=== PATIENT | female | born 1955 | race Caucasian/White ===

== ENCOUNTER 2025-03-02 06:39 | Day surgery (SDC) | payer BC ==
[~2025-03-02] VITALS: Ht 162.6 cm; Wt 78.5 kg
[2025-03-02] MEDS ORDERED: LIDOCAINE 1%-EPI 1:100,000 20 ML VIAL ONE (07:07)
[2025-03-02] MEDS ORDERED: ANESTHESIA TRAY IN PYXIS 1 EA TRAY MC ONE (07:07)
[2025-03-02] MEDS ORDERED: ROCURONIUM BROMIDE 50 MG/5 ML ONE ×2 (08:20→09:47)
[2025-03-02] MEDS ORDERED: SUCCINYLCHOLINE CHLORIDE 20 MG/ML VIAL ONE (08:20)
[2025-03-02] MEDS ORDERED: FENTANYL PF 250MCG/5ML AMPUL ONE ×2 (08:20→09:47)
[2025-03-02] MEDS ORDERED: BUPIVACAINE 0.25% 75 MG/30 ML VIAL ONE (10:18)
[2025-03-02] MEDS ORDERED: BUPIVACAINE 0.5 % PF 150 MG/30 ML VIAL ONE (10:18)
[2025-03-02] MEDS ORDERED: BACITRACIN/POLYMYXIN B 15 GM TUBE TP ONE (10:18)
[2025-03-02] MEDS ORDERED: MORPHINE SULFATE INJ 10 MG/ML DISP.SYRIN IV PRN (11:30)
[2025-03-02] MEDS ORDERED: ONDANSETRON HCL/PF 4 MG/2 ML VIAL IVP PRN (11:30)
[2025-03-02] MEDS ORDERED: FENTANYL PF 100MCG/2ML AMPUL IV PRN (11:30)
[2025-03-02] MEDS ORDERED: METOCLOPRAMIDE HCL 10 MG/2 ML VIAL IV PRN (11:30)
[2025-03-02 13:00] VITALS: BP 118/65; TEMP 97.3; O2SAT 99
[2025-03-02 13:15] VITALS: BP 128/73; TEMP 97.3; O2SAT 98
[2025-03-02 13:30] VITALS: BP 132/72; TEMP 97.2; O2SAT 97
[2025-03-02 13:45] VITALS: BP 133/75; TEMP 97.5; O2SAT 98
[2025-03-02 14:00] VITALS: BP 120/66; TEMP 97.4; O2SAT 97
[2025-03-02] MEDS ORDERED: oxyCODONE/APAP (5/325 MG) 1 UDTAB TABLET PO PRN (14:00)
[2025-03-02] MEDS: MORPHINE SULFATE INJ 2 MG/ML DISP.SYRIN IV ONE (14:01)
== END 2025-03-02 23:59 | disposition home or self-care (01) ==
LOC: DS 06:39 → UNDOADMIN 06:41 → MED 06:41 → UNDODISIN 16:30 → DS 23:59
PROVIDERS: ATTEND Plastic Surgery
DX: M79.3 Panniculitis, unspecified (principal); L03.311 Cellulitis of abdominal wall; R10.9 Unspecified abdominal pain; R23.4 Changes in skin texture; I25.10 Atherosclerotic heart disease of native coronary artery without angina pectoris; I10 Essential (primary) hypertension; M19.90 Unspecified osteoarthritis, unspecified site; E11.9 Type 2 diabetes mellitus without complications; E78.5 Hyperlipidemia, unspecified; Z98.890 Other specified postprocedural states; Z82.49 Family history of ischemic heart disease and other diseases of the circulatory system; Z79.899 Other long term (current) drug therapy; Z79.84 Long term (current) use of oral hypoglycemic drugs
CPT/HCPCS: 15830; 15847; 71045; 82962; 87081; 88305; A6253; C1713; J0330; J0690; J1100; J2270; J2405; J2704; J3010; J3490; J7030; G0378